=== PATIENT | male | born 1940 | race Caucasian/White ===

== ENCOUNTER 2023-11-17 10:30 | Emergency (ER) | payer OTHER ==
[~2023-11-17] VITALS: Ht 188 cm; Wt 65.8 kg
[2023-11-17 11:25] LABS: BASOPHILS ABSOLUTE AUTO 0.02 K/mm3 (0.00-0.23); BASOPHILS PERCENT AUTO 0 % (0-2); EOSINOPHILS ABSOLUTE AUTO 0.11 K/mm3 (0.00-0.68); EOSINOPHILS PERCENT AUTO 2 % (0-6); Hematocrit 36.9 % (37.0-53.0); Hemoglobin 12.4 g/dL (13.5-17.5); IMMATURE GRAN ABSOLUTE AUTO 0.01 K/mm3 (0.00-0.10); IMMATURE GRAN PERCENT AUTO 0 % (0-1); LYMPHOCYTES ABSOLUTE AUTO 0.94 K/mm3 (0.84-5.20); LYMPHOCYTES PERCENT AUTO 19 % (21-46); MONOCYTES ABSOLUTE AUTO 0.54 K/mm3 (0.16-1.47); MONOCYTES PERCENT AUTO 11 % (4-13); Mean Corpuscular HGB 31.2 pg (26.0-34.0); Mean Corpuscular HGB Conc 33.6 g/dL (31.5-36.5); Mean Corpuscular Volume 93 fL (80-100); Mean Platelet Volume 9.9 fL (9.1-12.4); NEUTROPHILS ABSOLUTE AUTO 3.29 K/mm3 (1.96-9.15); NEUTROPHILS PERCENT AUTO 67 % (41-73); Platelet Count 230 K/mm3 (150-400); RDW Coefficient Variation 13.7 % (11.7-14.2); RDW Standard Deviation 46.7 fL (35.1-46.3); Red Blood Cell Count 3.97 M/mm3 (4.30-5.90); White Blood Cell Count 4.91 K/mm3 (4.00-11.30)
[2023-11-17 11:28] LABS: Influenza A, PCR NEGATIVE (NEGATIVE); Influenza B, PCR NEGATIVE (NEGATIVE); Resp Syncytial Virus, PCR NEGATIVE (NEGATIVE); SARS-Cov-2 (COVID-19) PCR, MMC NEGATIVE (NEGATIVE)
[2023-11-17 11:43] LABS: Albumin, Blood 2.9 g/dL (3.4-5.0); Albumin/Globulin Ratio 0.7 (0.8-1.8); Bilirubin, Total 0.4 mg/dL (0.1-1.0); Bun/Creatinine Ratio 36.7 (12.0-20.0); Calcium, Blood 8.9 mg/dL (8.5-10.1); Creatinine, Blood 0.98 mg/dL (0.60-1.20); Globulin, Blood 4.1 g/dL (2.2-4.0); Magnesium, Blood 2.1 mg/dL (1.6-2.4); Potassium, Blood 4.2 mmol/L (3.5-5.5)
== END 2023-11-17 13:50 | disposition home or self-care (01) ==
LOC: ER 10:30
PROVIDERS: Physician Assistant
DX: R06.02 Shortness of breath (principal); R91.1 Solitary pulmonary nodule
CPT/HCPCS: 0241U; 71046; 71260; 80053; 83735; 84484; 85025; 85379; 93005; 93010; 99285-25; Q9967

== ENCOUNTER 2023-11-23 06:04 | Inpatient (IN) | payer OTHER ==
[~2023-11-23] VITALS: Ht 188 cm; Wt 67.2 kg
[2023-11-23] MEDS ORDERED: Ondansetron HCl 2 MG / ML 2ML Vial IV ONE (06:10)
[2023-11-23] MEDS ORDERED: Morphine Sulfate 4 MG/1 ML Injection IV ONE ×3 (06:10→10:20)
[2023-11-23 06:22] LABS: BASOPHILS ABSOLUTE AUTO 0.02 K/mm3 (0.00-0.23); BASOPHILS PERCENT AUTO 0 % (0-2); EOSINOPHILS ABSOLUTE AUTO 0.02 K/mm3 (0.00-0.68); EOSINOPHILS PERCENT AUTO 0 % (0-6); Hematocrit 33.7 % (37.0-53.0); Hemoglobin 11.3 g/dL (13.5-17.5); IMMATURE GRAN ABSOLUTE AUTO 0.04 K/mm3 (0.00-0.10); IMMATURE GRAN PERCENT AUTO 0 % (0-1); LYMPHOCYTES ABSOLUTE AUTO 0.74 K/mm3 (0.84-5.20); LYMPHOCYTES PERCENT AUTO 7 % (21-46); MONOCYTES ABSOLUTE AUTO 0.85 K/mm3 (0.16-1.47); MONOCYTES PERCENT AUTO 8 % (4-13); Mean Corpuscular HGB 31.3 pg (26.0-34.0); Mean Corpuscular HGB Conc 33.5 g/dL (31.5-36.5); Mean Corpuscular Volume 93 fL (80-100); Mean Platelet Volume 9.4 fL (9.1-12.4); NEUTROPHILS ABSOLUTE AUTO 9.18 K/mm3 (1.96-9.15); NEUTROPHILS PERCENT AUTO 85 % (41-73); Platelet Count 210 K/mm3 (150-400); RDW Coefficient Variation 13.4 % (11.7-14.2); RDW Standard Deviation 46.3 fL (35.1-46.3); Red Blood Cell Count 3.61 M/mm3 (4.30-5.90); White Blood Cell Count 10.85 K/mm3 (4.00-11.30)
[2023-11-23] MEDS ORDERED: ELIQUIS2.5 M1 PO (06:24)
[2023-11-23 06:41] LABS: Albumin, Blood 2.8 g/dL (3.4-5.0); Albumin/Globulin Ratio 0.7 (0.8-1.8); Bilirubin, Total 0.5 mg/dL (0.1-1.0); Bun/Creatinine Ratio 27.1 (12.0-20.0); Calcium, Blood 9.1 mg/dL (8.5-10.1); Globulin, Blood 3.8 g/dL (2.2-4.0); Potassium, Blood 4.1 mmol/L (3.5-5.5); Total Protein, Blood 6.6 g/dL (6.4-8.2)
[2023-11-23 09:03] VITALS: BP 143/98
--- NOTE | 2023-11-23 09:20 | NUR ---
LAST DOSE OF ELIQUIS WAS 10/2 AM
[2023-11-23] MEDS ORDERED: Morphine Sulfate 4 MG/1 ML Injection ONE (09:49)
[2023-11-23] MEDS ORDERED: HYDROmorphone HCl/Pf 1MG SYR IV PRN (11:15)
[2023-11-23] MEDS ORDERED: OxyCODONE HCL 5 MG TAB PO PRN (13:45)
[2023-11-23] MEDS ORDERED: Ondansetron HCl 2 MG / ML 2ML Vial IV PRN (13:45)
[2023-11-23] MEDS ORDERED: FLU VACC TS2024-25(6MOS UP)/PF 45 MCG/0.5 ML SYRINGE IM SCH (13:45)
[2023-11-23] MEDS ORDERED: Temazepam 15 MG Cap PO PRN (13:45)
[2023-11-23] MEDS ORDERED: Ondansetron 4 MG TAB PO PRN (13:45)
[2023-11-23] MEDS ORDERED: Acetaminophen 325 MG TABLET PO PRN (13:45)
[2023-11-23] MEDS ORDERED: D5W-NS 1,000 ML IV SCH (13:45)
[2023-11-23 15:27] VITALS: BP 150/82
--- NOTE | 2023-11-23 18:12 | NUR ---
SHIFT SUMMARY SURGEON WAS HOPEFUL TO HAVE SURGERY TODAY, BUT OR TIME WAS UNAVAILABLE. PLAN FOR OR TOMORROW. PT CONFUSED BUT PLEASANT. HAS BEEN SLEEPING ON/OFF. PAINFUL BUT GETS RELIEF FROM DILAUDID. FAMILY SUPPORTIVE.
[2023-11-23] MEDS ORDERED: CeFAZolin Sodium 2,000 MG in NS 100 ML IV SCH (19:10)
[2023-11-23] MEDS ORDERED: Tranexamic Acid 100 ML IV SCH (19:10)
[2023-11-23 19:48] VITALS: BP 135/71
[2023-11-24] VITALS (18 sets, daily range): BP systolic 124–163; BP diastolic 56–84
[2023-11-24 04:07] LABS: BASOPHILS ABSOLUTE AUTO 0.01 K/mm3 (0.00-0.23); BASOPHILS PERCENT AUTO 0 % (0-2); EOSINOPHILS ABSOLUTE AUTO 0.07 K/mm3 (0.00-0.68); EOSINOPHILS PERCENT AUTO 1 % (0-6); Hematocrit 31.3 % (37.0-53.0); Hemoglobin 10.1 g/dL (13.5-17.5); IMMATURE GRAN ABSOLUTE AUTO 0.02 K/mm3 (0.00-0.10); IMMATURE GRAN PERCENT AUTO 0 % (0-1); LYMPHOCYTES ABSOLUTE AUTO 0.74 K/mm3 (0.84-5.20); LYMPHOCYTES PERCENT AUTO 13 % (21-46); MONOCYTES ABSOLUTE AUTO 0.61 K/mm3 (0.16-1.47); MONOCYTES PERCENT AUTO 11 % (4-13); Mean Corpuscular HGB 30.5 pg (26.0-34.0); Mean Corpuscular HGB Conc 32.3 g/dL (31.5-36.5); Mean Corpuscular Volume 95 fL (80-100); Mean Platelet Volume 9.9 fL (9.1-12.4); NEUTROPHILS ABSOLUTE AUTO 4.25 K/mm3 (1.96-9.15); NEUTROPHILS PERCENT AUTO 75 % (41-73); Platelet Count 203 K/mm3 (150-400); RDW Coefficient Variation 13.6 % (11.7-14.2); RDW Standard Deviation 47.4 fL (35.1-46.3); Red Blood Cell Count 3.31 M/mm3 (4.30-5.90)
[2023-11-24 04:15] LABS: Source, Urine Foley catheter
[2023-11-24 04:17] LABS: Bilirubin, Urine Neg (Neg); Blood, Urine Neg (Neg); Glucose Qualitative, Urine Neg (Neg); Ketones, Urine Neg (Neg); Leukocyte Esterase, Urine Neg (Neg); Nitrite, Urine Neg (Neg); Protein, Urine 1+ (Neg); Urobilinogen, Urine NORM (Normal)
--- NOTE | 2023-11-24 05:29 | NUR ---
SHIFT SUMMARY PT SLEPT FOR MOST OF SHIFT. PAIN MANAGED PER EMAR. NPO FOR SURGERY TODAY. PT HAD NOT VOIDED DIURING THE SHIFT. BLADER SCAN WAS DONE. BS CAME ION AT OVER 816 ML. CONTACTED AND ORDER FOR [place] CATH WAS GIVEN. [place] PLACED AND URINE SAMPLE SENT TO LAB. VSS. NO OTHER CONCERNS AT THIS TIME, CALL LIGHT WITHIN REAC
[2023-11-24 05:55] LABS: Appearance, Urine Clear (Clear); Color, Urine Yellow (P-Yellow)
[2023-11-24 06:26] LABS: Albumin, Blood 2.4 g/dL (3.4-5.0); Albumin/Globulin Ratio 0.7 (0.8-1.8); Bilirubin, Total 0.6 mg/dL (0.1-1.0); Bun/Creatinine Ratio 22.7 (12.0-20.0); Calcium, Blood 8.7 mg/dL (8.5-10.1); Creatinine, Blood 0.93 mg/dL (0.60-1.20); Globulin, Blood 3.6 g/dL (2.2-4.0); Potassium, Blood 4.3 mmol/L (3.5-5.5)
[2023-11-24] MEDS ORDERED: Lactated Ringer's 1,000 ML IV SCH (11:00)
--- NOTE | 2023-11-24 12:13 | NUR ---
PT TO DAY SURGERY AT THIS TIME.
[2023-11-24] MEDS ORDERED: Bupivacaine 0.5% HCl 5 MG/ML 30MLVIAL ONE (12:57)
[2023-11-24] MEDS ORDERED: propofoL 20 ML IV ONE (13:00)
[2023-11-24] MEDS ORDERED: FentaNYL Citrate 50 MCG/ML 2 ML Injection ONE (13:01)
[2023-11-24] MEDS ORDERED: ePHEDrine Sulfate 50 MG/ML 1ML Injection ONE (13:03)
[2023-11-24] MEDS ORDERED: Etomidate 2MG / ML 10ML Vial ONE (13:05)
--- NOTE | 2023-11-24 13:24 | NUR ---
PT TO UNIT VIA HOSPITAL BED. PT ALERT TO NAME BUT UNABLE TO COMMUNICATE DATE OF OR SURGICAL SIDE. DAUGHTER AND SON IN LAW AT BEDSIDE. DAUGHTER REPORTS HAVING MEDICAL POA. PT REPORTS PAIN OF 9/10. 20G IV IN RAC FLUSHED. DRESSING REMAINS IN TACT.
[2023-11-24] MEDS ORDERED: Ondansetron HCl 2 MG / ML 2ML Vial ONE (13:45)
[2023-11-24] MEDS ORDERED: Dexamethasone Sod Phos 10 MG/ML 1ML VIAL ONE (13:45)
[2023-11-24] MEDS ORDERED: HYDROmorphone HCl/Pf 1MG SYR ONE (13:45)
[2023-11-24] MEDS ORDERED: EpiNEPhrine 1 MG/1 ML 1ML Vial ONE (13:59)
[2023-11-24] MEDS ORDERED: Ketorolac Tromethamine 30mg Vial ONE (14:36)
--- NOTE | 2023-11-24 15:37 | NUR ---
POST OP S/P L HIP NAILING. X3 GAUZE + TEGADERM SITES ARE CDI. PT DROWSY ON ARRIVAL. POST OP VSS AND IN PROGRESS. 2L 02 NC PLACED FOR DESAT AT 87% WHILE ASLEEP. PT APPEARS COMFORTABLE AT REST WITH EYES CLOSED. [place]A PATENT TO GRAVITY. FAMILY AT BEDSIDE FOR SUPPORT. CALL LIGHT WITHIN REACH.
[2023-11-25 04:23] VITALS: BP 148/67
--- NOTE | 2023-11-25 05:28 | NUR ---
SHIFT SUMMARY POD 1 L HIP NAILING PT RESTLESS DURING THE NIGHT. PAIN MANAGED PER EMAR. DRESSING TO L HIP C/D/I. TOLERATING PO INTAKE. [place] IN PLACE, DRAINING TAMIKA URINE. VSS. PT HAS NOT BEEN OOB, AWAITING THERPY EVAL. NO OTHER CONCERNS AT THIS TIME, CALL LIGHT WITHIN REACH
--- NOTE | 2023-11-25 07:51 | NUR ---
BED ALARM GOING OFF, ENTERED ROOM AND PATIENT WAS ATTEMPTING TO GET OUT OF BED TANGLED IN SCD'S AND PULSE OXIMETRY. PATIENT WAS VERY FRANTIC AND PULLING AT LINES AND CORDS. NOTICED SOME BLOOD ON BLANKETS AND FLOOR. PT HAD PULLED URINARY CATHETER OUT. BALLOON WAS FULLY INFLATED AT THE END. PT GRABBING AT HIS PENIS. NO FURTHER BLOOD COMING OUT OF PENIS. PT WAS ABLE TO BE CALMED DOWN AND REDIRECTED, HELPED BACK INTO BED. NEW SHEETS AND DEPENDS PLACED ON PATIENT. NOTIFIED PROVIDER. PLAN TO MONITOR PATIENTS ABILITY TO VOID AND HOLD OFF REPLACING [place] CATHETER UNLESS PATIENT BEGINS RETAINING URINE. PT CURRENTLY RESTING IN BED, DENIES PAIN. BED ALARM PLACED ON AND PRIMARY RN NOTIFIED.
[2023-11-25 08:10] VITALS: BP 119/53
[2023-11-25 11:47] VITALS: BP 126/57
[2023-11-25 15:01] VITALS: BP 130/47
[2023-11-25 15:02] VITALS: BP 125/48
--- NOTE | 2023-11-25 19:14 | NUR ---
SHIFT SUMMARY POD1 L HIP NAIL, CONFUSED BUT COOPERATIVE, PLEASANT WITH STAFF, WORKED WT PT, UP TO CHAIR THROUGH MOST OF THE SHIFT, HE PULLED HIS [place] OUT THIS AM AND WAS NOTIFIED, NO VOID POST [place] REMOVAL, BLADDER SCAN END OF SHIFT SHOWS 266ML IN HIS BLADDER. NO OTHER EVENTS, CALL LIGHT IN REACH.
[2023-11-25 19:18] VITALS: BP 160/68
[2023-11-26 04:03] VITALS: BP 163/77
[2023-11-26 06:28] LABS: Source, Urine Foley catheter
[2023-11-26 06:37] LABS: Appearance, Urine Clear (Clear); Bilirubin, Urine Neg (Neg); Blood, Urine 3+ (Neg); Color, Urine Yellow (P-Yellow); Glucose Qualitative, Urine Neg (Neg); Ketones, Urine Neg (Neg); Leukocyte Esterase, Urine Neg (Neg); Nitrite, Urine Neg (Neg); Protein, Urine Neg (Neg); Specific Gravity, Urine 1.015 (1.003-1.022); Urobilinogen, Urine NORM (Normal)
[2023-11-26 07:16] VITALS: BP 145/96; BP 156/72
[2023-11-26 07:56] LABS: White Blood Cells, Urine 0-2 /hpf (0-5)
[2023-11-26 07:58] LABS: Hyaline Casts 0-2 /lpf (0-2)
[2023-11-26 07:59] LABS: Squamous Epithelial Cells Rare /hpf (Few)
[2023-11-26 08:00] LABS: Amorphous Light (0-Heavy); Bacteria Few /hpf; Mucus Light (0-Heavy)
[2023-11-26] MEDS ORDERED: Apixaban 5 MG Tab PO SCH (09:00)
[2023-11-26] MEDS ORDERED: Tamsulosin HCl 0.4 MG Cap PO SCH ×2 (09:00)
[2023-11-26 15:05] VITALS: BP 125/60
--- NOTE | 2023-11-26 16:33 | NUR ---
SHIFT SUMMARY POD2 L HIP NAILING, ALERT BUT PLEASANTLY CONFUSED, NOT IMPULSIVE BUT HE DOES PULL ON LINES, HE HAS BEEN ABLE TO BE REDIRECTED TODAY WITH VERBAL REDIRECTION AND HIS [place] HAS BEEN COVERED WITH HIS ATTENDS AND SHANNON PANTS, ONE ON ONE SITTER TODAY WATCHING TO MAKE SURE HE DOES NOT PULL AT ANY LINES, PAIN MANAGED PER EMAR. PT TRANSFERRED UPSTAIRS TO THE BACK PAREKH. REPORT GIVEN TO MEDICAL FLOOR RN.
--- NOTE | 2023-11-26 16:46 | NUR ---
RECEIVED REPORT FROM TATYANA PHOENIX AND ASSUMED CARE OF PT AT APPROX 1620. PT A&OX2 AND CONFUSED, [place], AND AQUACEL DRESSING IN PLACE THAT WAS C/D/I. PT ORIENTED TO ROOM AND CALL LIGHT. 1:1 SITTER AT BEDSIDE.
--- NOTE | 2023-11-26 16:49 | NUR ---
HEAD CT HIS DAUGHTER STATES THAT HIS PCP (NIHARIKA PEREZ) HAS A HEAD CT SCHEDULED FOR HIM ON 11/30 AND IS REQUESTING TO HAVE THIS DONE WHILE HE IS HERE.
--- NOTE | 2023-11-26 17:46 | NUR ---
SHIFT SUMMARY PT A&OX2 W/ CONFUSION AT TIMES, VSS, TOLERATING PO, VOIDING, AND PAIN MANANGED. PT STAND/PIVOT ASSIST W/ 3P TO THE BSC AND TOLERATED IT POORLY. NO OTHER ACUTE CHANGES. 1:1 SITTER REMAINS. CALL LIGHT WITHIN REACH. BED ALARM ON FOR SAFETY.
[2023-11-26 19:58] VITALS: BP 161/82
[2023-11-27 03:51] VITALS: BP 119/64
--- NOTE | 2023-11-27 05:31 | NUR ---
SHIFT SUMMARY PATIENT SLEPT IN LONG INTERVAL AFTER MEDICATING HIM FOR PAIN AND SLEEP. WAS A HEAVY 2 PERSON ASSIST TO BS FOR LARGE DRY BM. BACK TO BED AND MEDICATED FOR PAIN WITH SOME PRUNE JUICE TO DRINK. VERY PLEASANT, SEEMS LESS CONFUSED THIS MORNING. BP ELEVATED. 1:1 SITTER DC'D AROUND 0200. HAS LEFT DE [place] ROSA ALONE SO FAR.
[2023-11-27 07:40] VITALS: BP 125/78
--- NOTE | 2023-11-27 11:23 | NUR ---
discussed owens cath, leg pain, and ivf with dr. damon. vicky schrader/diana owens and ivf, no further orders.
[2023-11-27 11:59] VITALS: BP 121/76
[2023-11-27] MEDS ORDERED: Cyclobenzaprine HCl 10 MG Tab PO PRN (12:15)
--- NOTE | 2023-11-27 18:50 | NUR ---
PT PLEASANTLY OKRIENTED X2-3 TODAY. ABLE TO MAKE NEEDS KNOWN. ABLE TO TELL ME PAIN LEVEL IN LEGS AND INCREASED IN RT LEG. ORDERED XRAY THIS AFT. MEDICATED T/O DAY. DID GET ORDERS FOR MUSCLE SPASMS. [place] PULLED PER , SITTER REMOVED. PT DIDNT URINATE, SO ORDERS FOR BLADDER SCAN Q4 AND STRAIGHT CATH OF >450. PRESENTLY SLEEPING. BED IN LOW POSITION, CALL LITE IN REACH, BED ALARM ON FOR SAFETY
[2023-11-27 19:45] VITALS: BP 154/72
[2023-11-28] MEDS ORDERED: Lidocaine 2% Jelly Uro-Jet TOP PRN (01:45)
[2023-11-28 03:45] VITALS: BP 119/63
--- NOTE | 2023-11-28 05:45 | NUR ---
SHIFT SUMMARY PATIENT WAS ABLE TO VOID IN URINAL ONCE BUT HAD TO BE STRAIGHT CATHED ONCE AFTER THAT. DID NOT HAVE TO GET UP FOR BM TONGT. GIVEN PRN GABAPENTEN, TYLENOL AND OXYCODONE. ALSO HAD SLEPT THRU DINNER, TRAY WAS UNTOUCHED. GIVEN ICE CREAM SHAKE, HE WAS ABLE TO FEED HIMSELF.
[2023-11-28 07:12] VITALS: BP 154/70
[2023-11-28 17:10] VITALS: BP 141/68
--- NOTE | 2023-11-28 17:25 | NUR ---
PT HAS BEEN AOX2-3 AND COOPERATIVE OF MOST CARE. PT DID NOT WANT TO WORK WITH PHYSICAL THERAPY HE HAS PAIN AND IS BEING TREATED PER EMAR. PT HAS TO BE TALKED INTO REPOSITIONING DUE TO PAIN. TREATED FOR MUSCLE SPASM WELL PER EMAR. PT HAS NEEDED TO BE STRAIGHT CATHED X2 THIS SHIFT. PT TOLERATED WELL. WILL CONTINUE TO MONITOR BED ALARM IS IN PLACE.
--- NOTE | 2023-11-28 17:30 | NUR ---
THIS INVESTMENT BROKER HAS REVIEWED AND AGREES WITH ASSESSMENTS DONE BY TATYANA DALTON.
[2023-11-28 21:37] VITALS: BP 136/64
[2023-11-29 04:30] VITALS: BP 123/68
--- NOTE | 2023-11-29 06:39 | NUR ---
SHIFT SUMMARY PATIENT NOT ABLE TO VOID ON HIS OWN TONIGHT. LOW GRADE TEMP OF 99.7. MEDICATED FOR PAIN & MUSCLE SPASMS. NEEDS ENCOUAGEMENT TO DRINK WATER ON HIS OWN.
[2023-11-29 07:37] VITALS: BP 119/95
[2023-11-29 15:40] VITALS: BP 127/66
--- NOTE | 2023-11-29 17:09 | NUR ---
SHIFT SUMMARY: PT ORIENTED TO SELF, SITUATION AND TIME BUT REGULARLY FORGETS PLACE. HAS SOME DIMINISHED MENTATION, FORGETTING WHAT WE ARE DOING BUT WILL ATTEMPT TO FOLLOW DEMANDS IF ASKED. VERY PLESANT AND APOLOGETIC. HAD TO BE STRAIGHT CATHED TWICE. NOTIFIED ABOUT CHANGE IN MENTATION AND MULTIPLE STRAIGHT CATHS, ORDER FOR UA AND [place] PLACED. PT SAW BY OT AND WAS ABLE TO SIT UP AT THE EDGE OF THE BED BUT STILL HINDERED BY PAIN AND CONFUSION. BED IN LOWEST POSITION, CALL LIGHT IN REACH, AND BED ALARM ON. PAIN STILL BEING TREATED PER EMR.
[2023-11-29 17:55] LABS: Source, Urine Foley catheter
[2023-11-29 17:59] LABS: Appearance, Urine Clear (Clear); Bilirubin, Urine Neg (Neg); Blood, Urine Neg (Neg); Color, Urine Yellow (P-Yellow); Glucose Qualitative, Urine Neg (Neg); Ketones, Urine Neg (Neg); Leukocyte Esterase, Urine Neg (Neg); Nitrite, Urine Neg (Neg); Protein, Urine Neg (Neg); Urobilinogen, Urine 2+ (Normal)
--- NOTE | 2023-11-29 18:29 | NUR ---
THIS FILTRATION SUPERVISOR HAS REVIEWED AND AGREES WITH ALL NOTES AND ASSESSMENTS BY TATYANA DALTON.
[2023-11-29 19:40] VITALS: BP 143/65
--- NOTE | 2023-11-29 22:14 | NUR ---
PATIENT HAS BEEN TRYING TO GET OUT OF BED SOON MY SHIFT STARTED. HE IS NOT ANGRY AT ALL BUT I GAVE HIM PRN OXY, TYLENOL & RESTORIL TO HELP HIM CALM DOWN. HE HAS NOT BEEN ABLE TO GET TO HIS [place] IT IS RUN THRU HIS PJ BOTTOMS.HE IS MUCH MORE CONFUSED THAN THE LAST 3 NIGHTS THAT I'VE BEEN HIS NURSE. LIYA CHARTING JUST OUTSIDE HIS ROOM FOR THE NIGHT.
[2023-11-30 04:14] VITALS: BP 146/81
[2023-11-30 07:29] VITALS: BP 145/75
[2023-11-30 10:54] VITALS: BP 127/68
[2023-11-30 15:33] VITALS: BP 128/111
[2023-11-30 19:16] VITALS: BP 114/60
[2023-12-01 03:31] VITALS: BP 155/72
[2023-12-01 07:05] VITALS: BP 165/78
[2023-12-01 15:29] VITALS: BP 121/74
--- NOTE | 2023-12-01 17:32 | NUR ---
SHIFT SUMMARY: LUIS IS A&OX1-2. VSS, NO ACUTE EVENTS THIS SHIFT. HE IS TOLERATING PO INTAKE WELL, TAKES MEDICATIONS WITHOUT DIFFICULTY. HE IS A HEAVY TWO-PERSON ASSIST TO THE BEDSIDE CHAIR, HAS SOME DIFFICULTY FOLLOWING DIRECTIONS BUT IS ABLE TO FOLLOW SIMPLE DIRECTIONS MORE EASILY. [place] IN PLACE DRAINING CLEAR, YELLOW URINE. AQUACELL TO LEFT HIP C/D&I. BED AND CHAIR ALARMS IN USE. PT HAS BEEN PLEASANT AND COOPERATIVE. HE IS SITTING UP IN THE BEDSIDE RECLINER WITH THE CALL LIGHT IN REACH. PT PULLED HIS IV TODAY, ORDER OBTAINED FROM HOSPITALIST FOR NO NEED FOR IV ACCESS. PT IS TO DISCHARGE TO SNF TOMORROW AT 11. WILL GIVE REPORT TO ACTUARY MANAGER RN.
[2023-12-01 20:08] VITALS: BP 124/71
[2023-12-02 03:17] VITALS: BP 147/55
--- NOTE | 2023-12-02 06:20 | NUR ---
Shift Summary Pt is AOx0-1, very confused, speaking incoherently and not understanding what is being said. He is very active and fidgety often triggering the bed alarm when swining his legs over the bedrail. Baker in place for retention, and pants are on with a draw string tied to prevent him from pulling on his Baker. He refused his night time medications, he seemed hesitant or fearful about taking pills. He did not sleep at any point during the night.
[2023-12-02 07:12] LABS: BASOPHILS ABSOLUTE AUTO 0.03 K/mm3 (0.00-0.23); BASOPHILS PERCENT AUTO 0 % (0-2); EOSINOPHILS ABSOLUTE AUTO 0.07 K/mm3 (0.00-0.68); EOSINOPHILS PERCENT AUTO 1 % (0-6); Hematocrit 26.5 % (37.0-53.0); Hemoglobin 8.8 g/dL (13.5-17.5); IMMATURE GRAN ABSOLUTE AUTO 0.04 K/mm3 (0.00-0.10); IMMATURE GRAN PERCENT AUTO 1 % (0-1); LYMPHOCYTES ABSOLUTE AUTO 0.76 K/mm3 (0.84-5.20); LYMPHOCYTES PERCENT AUTO 11 % (21-46); MONOCYTES ABSOLUTE AUTO 0.74 K/mm3 (0.16-1.47); MONOCYTES PERCENT AUTO 10 % (4-13); Mean Corpuscular HGB 30.7 pg (26.0-34.0); Mean Corpuscular HGB Conc 33.2 g/dL (31.5-36.5); Mean Corpuscular Volume 92 fL (80-100); Mean Platelet Volume 9.8 fL (9.1-12.4); NEUTROPHILS ABSOLUTE AUTO 5.49 K/mm3 (1.96-9.15); NEUTROPHILS PERCENT AUTO 77 % (41-73); Platelet Count 331 K/mm3 (150-400); RDW Standard Deviation 46.5 fL (35.1-46.3); Red Blood Cell Count 2.87 M/mm3 (4.30-5.90); White Blood Cell Count 7.13 K/mm3 (4.00-11.30)
[2023-12-02 07:16] VITALS: BP 138/70
[2023-12-02 07:52] LABS: Albumin, Blood 2.3 g/dL (3.4-5.0); Albumin/Globulin Ratio 0.6 (0.8-1.8); Bilirubin, Total 1.3 mg/dL (0.1-1.0); Bun/Creatinine Ratio 31.3 (12.0-20.0); Calcium, Blood 8.9 mg/dL (8.5-10.1); Creatinine, Blood 0.96 mg/dL (0.60-1.20); Globulin, Blood 3.9 g/dL (2.2-4.0); Potassium, Blood 4.1 mmol/L (3.5-5.5); Total Protein, Blood 6.2 g/dL (6.4-8.2)
[2023-12-02] MEDS ORDERED: TraZODone HCl 50 MG Tab PO PRN (08:15)
[2023-12-02] MEDS ORDERED: Calcium Carbonate 500 MG Tab Chew PO SCH (08:30)
[2023-12-02] MEDS ORDERED: Bisacodyl 10 MG Supp PR ONE (10:40)
[2023-12-02] MEDS ORDERED: Calcium Carbon500 MG PO (10:55)
[2023-12-02] MEDS ORDERED: ACET325 PO (10:55)
[2023-12-02] MEDS ORDERED: TRAZ50 PO (10:56)
[2023-12-02] MEDS ORDERED: Flomax0.4 MG PO (10:56)
[2023-12-02] MEDS ORDERED: OXYC5 PO (10:56)
[2023-12-02] MEDS ORDERED: QUET25 PO (10:57)
--- NOTE | 2023-12-02 11:44 | NUR ---
DISCHARGE SUMMARY: PT DISCHARGED TO [facility] [place]. REPORT GIVEN TO PALMIRA. PT [facility] VIA 2 PERSON ASSIST WITH GAIT BELT. PT TOLERATED WELL. BELONGINGS INCLUDING DENTURES SENT WITH PT. SUPPOSITORY GIVEN PRIOR TO LEAVING DUE TO NO BM X 5 DAYS.
== END 2023-12-02 11:11 | DRG 481 ==
LOC: ER 06:04 → SURS 07:39 → MEDS 11-26 16:15
PROVIDERS: Emergency Medicine; Family Medicine; Internal Medicine; Orthopaedic Surgery Sports Medicine; ADMIT Internal Medicine
PROC: 0QH734Z Insertion of Internal Fixation Device into Left Upper Femur, Percutaneous Approach (ICD-10-PCS; principal; 2023-11-24 13:00)
DX: S72.142A Displaced intertrochanteric fracture of left femur, initial encounter for closed fracture (principal); F05 Delirium due to known physiological condition; R64 Cachexia; Z68.1 Body mass index [BMI] 19.9 or less, adult; W01.0XXA Fall on same level from slipping, tripping and stumbling without subsequent striking against object, initial encounter; Z79.01 Long term (current) use of anticoagulants; Z79.899 Other long term (current) drug therapy; I48.91 Unspecified atrial fibrillation; R33.9 Retention of urine, unspecified; Z66 Do not resuscitate; G30.9 Alzheimer's disease, unspecified; F02.A0 Dementia in other diseases classified elsewhere, mild, without behavioral disturbance, psychotic disturbance, mood disturbance, and anxiety
CPT/HCPCS: 36415; 51702; 70450; 73502; 80053; 81001; 81003; 85025; 96374; 96375; 96376; 97110; 97161; 97166; 97530; 97535; 99284-25; A9270; C1713; C1769; J0171; J0690; J1100; J1170; J1885; J2270; J2405; J2704; J3010; J7042; J7120